=== PATIENT | female | born 1980 | race Native Hawaiian/Other Pacific Islander ===

== ENCOUNTER 2017-11-22 15:22 | Emergency (ER) | payer OTHER ==
[~2017-11-22] VITALS: Ht 162.6 cm; Wt 52.2 kg
[2017-11-22 17:37] LABS: PLATELET COUNT 231 K/uL (152-353)
[2017-11-22 17:52] LABS: POTASSIUM 3.8 mmol/L (3.6-5.2)
[2017-11-22 19:15] VITALS: BP 100/68; TEMP 98.4
== END 2017-11-22 19:17 | disposition home or self-care (01) ==
LOC: ED 15:22
PROVIDERS: Emergency Medicine
DX: N39.0 Urinary tract infection, site not specified (principal); N12 Tubulo-interstitial nephritis, not specified as acute or chronic
CPT/HCPCS: 36415; 80053; 81000; 81025; 85027; 87077; 87086; 87088; 87186; 87804; 96372; 99283; J0696; J1885

== ENCOUNTER 2018-10-03 14:28 | Emergency (ER) | payer OTHER ==
[~2018-10-03] VITALS: Ht 162.6 cm; Wt 52.2 kg
[2018-10-03 15:24] VITALS: BP 119/79; TEMP 98
== END 2018-10-03 15:24 | disposition home or self-care (01) ==
LOC: ED 14:28
DX: R56.9 Unspecified convulsions (principal)
CPT/HCPCS: 99281

== ENCOUNTER 2022-04-18 23:01 | Emergency (ER) | payer OTHER ==
[~2022-04-18] VITALS: Ht 162.6 cm; Wt 48.5 kg
[2022-04-18] MEDS ORDERED: CLEOCIN150 MG PO (23:25)
[2022-04-18 23:50] VITALS: BP 138/82; TEMP 97.5
== END 2022-04-18 23:50 | disposition home or self-care (01) ==
LOC: ED 23:01
DX: K02.9 Dental caries, unspecified (principal)
CPT/HCPCS: 96372; 99282; J1885

== ENCOUNTER 2022-06-05 17:12 | Emergency (ER) | payer OTHER ==
[~2022-06-05] VITALS: Ht 162.6 cm; Wt 48.5 kg
[~2022-06-05 17:12] MED LIST: CLEOCIN150 MG PO
[2022-06-05 17:52] VITALS: BP 113/69; TEMP 98.3
== END 2022-06-05 17:52 | disposition home or self-care (01) ==
LOC: ED 17:12
DX: J06.9 Acute upper respiratory infection, unspecified (principal); F17.210 Nicotine dependence, cigarettes, uncomplicated
CPT/HCPCS: 99281

== ENCOUNTER 2022-06-20 15:22 | Emergency (ER) | payer OTHER ==
[~2022-06-20] VITALS: Ht 160 cm; Wt 48.5 kg
[2022-06-20 15:50] VITALS: BP 123/70; TEMP 97.1
== END 2022-06-20 16:38 | disposition home or self-care (01) ==
LOC: ED 15:22
DX: J01.80 Other acute sinusitis (principal); R05.8 Other specified cough; F17.210 Nicotine dependence, cigarettes, uncomplicated
CPT/HCPCS: 99282

== ENCOUNTER 2022-11-19 11:32 | Emergency (ER) | payer OTHER ==
[~2022-11-19] VITALS: Ht 160 cm; Wt 47.6 kg
[2022-11-19 11:36] VITALS: BP 111/70; TEMP 98
== END 2022-11-19 12:09 | disposition home or self-care (01) ==
LOC: ED 11:32
DX: S80.812A Abrasion, left lower leg, initial encounter (principal); W54.0XXA Bitten by dog, initial encounter; Y92.89 Other specified places as the place of occurrence of the external cause
CPT/HCPCS: 99281

== ENCOUNTER 2023-03-25 18:11 | Emergency (ER) | payer OTHER ==
[~2023-03-25] VITALS: Ht 160 cm; Wt 48.7 kg
[2023-03-25 18:28] VITALS: BP 109/59; TEMP 98.8
== END 2023-03-25 20:15 | disposition home or self-care (01) ==
LOC: ED 18:11
DX: J10.1 Influenza due to other identified influenza virus with other respiratory manifestations (principal); R52 Pain, unspecified; F17.210 Nicotine dependence, cigarettes, uncomplicated
CPT/HCPCS: 87502; 87635; 99283; U0003